=== PATIENT | female | born 1950 | race Caucasian/White ===

== ENCOUNTER 2018-11-28 01:20 | Emergency (ER) | payer MEDICARE, SELFPAY ==
[2018-11-28 01:24] VITALS: BP 159/86; PULSE 96; RESP 18; TEMP 36.2; O2SAT 88; BMI 23.0
--- NOTE | 2018-11-28 03:06 | RAD_ITS ---
STUDY: X-RAY - PELVIS AND RIGHT HIP REASON FOR EXAM: Female, 68 years old. Status post fall. TECHNIQUE: 3 views of the pelvis and hip. COMPARISON: CT scan abdomen and pelvisw 05/28/2015. FINDINGS: There is a non-specific bowel gas pattern. Normal visualized soft tissue structures. Normal bilateral iliac wings, sacroiliac joints and visualized sacrum. Normal bilateral superior and inferior pubic rami. Normal pubic symphysis. Normal bilateral ischial tuberosities. There are osteoarthritic changes of the femoral head with marginal osteophyte formation.p Normal acetabulum. Normal hip joint. RAD/HIP, UNI W/ Pelvis 2-3 Views IMPRESSION: Mild degenerative changes of the hip. No demonstrated fracture, dislocation, or destructive osseous lesion. Electronically Signed: Jeramie Gross MD at 4:19 EDT , Service support ,
--- NOTE | 2018-11-28 03:06 | RAD_ITS ---
STUDY: X-RAY - LEFT ANKLE REASON FOR EXAM: Female, 68 years old. Status post fall. TECHNIQUE: 4 view(s) of the ankle. COMPARISON: None. FINDINGS: There is generalized osteoporosis. Normal visualized talus and calcaneus. The visualized subtalar, talonavicular, calcaneocuboid and tarsal articulations are normal. There is a surgical clip overlying posterior medial soft tissues. There is nonspecific soft tissue swelling. RAD/Ankle min 3 Views IMPRESSION: Osteoporosis. No demonstrated fracture, dislocation, or destructive osseous lesion. Electronically Signed: Jeramie Gross MD at 4:16 EDT , Service support ,
--- NOTE | 2018-11-28 03:06 | RAD_ITS ---
STUDY: X-RAY - PELVIS AND LEFT HIP REASON FOR EXAM: Female, 68 years old. Status post fall. TECHNIQUE: 3 views of the pelvis and hip. COMPARISON: CT scan abdomen and pelvis 05/28/2015. FINDINGS: There is a non-specific bowel gas pattern. Normal visualized soft tissue structures. Normal bilateral iliac wings, sacroiliac joints and visualized sacrum. Normal bilateral superior and inferior pubic rami. Normal pubic symphysis. Normal bilateral ischial tuberosities. There are osteoarthritic changes of the femoral head with marginal osteophyte formation. Normal acetabulum. Normal hip joint. RAD/HIP, UNI W/ Pelvis 2-3 Views IMPRESSION: Mild degenerative changes of the hip. No demonstrated fracture, dislocation, or destructive osseous lesion. Electronically Signed: Jeramie Gross MD at 4:27 EDT , Service support ,
--- NOTE | 2018-11-28 03:06 | RAD_ITS ---
STUDY: X-RAY - LUMBAR SPINE REASON FOR EXAM: Female, 68 years old. Status post fall. TECHNIQUE: 3 view(s) of the lumbar spine were obtained. COMPARISON: X-Ray Lumbar Spine 02/26/2017. CT scan abdomen and pelvis 05/28/2015. FINDINGS: Normal lumbar lordosis. There is mild levoscoliosis of the mid lumbar spine and there is dextroscoliosis at the thoracolumbar junction. There is a normal alignment of the vertebrae. There are compression fractures of the T12,, L2, and L3 vertebral bodies which were also present on the 2017 exam. Additionally, there are mild compression fracture deformities of the L1 and L4 vertebral bodies which were not present in 2017 but still appear to be chronic., With no visible associated cortical discontinuity or fracture line. Overlying few fracture cannot be excluded entirely at the L1 or L4 levels. Normal disc space heights. There is questionable reidentification of an abdominal aortic aneurysm, which was seen on the May 2015 CT scan. RAD/Lumbar Spine 2 or 3 Views IMPRESSION: Multiple old compression fractures, which were also present in 2017. Compression fractures of the L1 and L4 vertebral bodies were not present in 2017 and are probably also old. If clinically warranted, CT scan might be used for confirmation. Electronically Signed: Jeramie Gross MD at 4:26 EDT , Service support ,
[2018-11-28] MEDS: oxyCODONE Soln 5 MG/0.25 ML PO.SYRINGE PO (04:02)
--- NOTE | 2018-11-28 04:37 | ED.DCSUM_ITS ---
- ER Visit Summary Date of Service: 11/28/18 Chief Complaint: Fall History of Present Illness: The patient is a 68 F who presents after a fall. She is normally in a wheelchair. She was trying to open the door when her wheelchair slid out from underneath her and she fell into a seated position. She complains of lower back pain and pain in both feet. She otherwise denies recent illness such as fevers chest pain vomiting. She does not complain of headache or neck pain. She is a hospice patient. Physical Examination: Afebrile pulse ox 88% on 3 L Heart regular rate and rhythm Lungs clear Abdomen soft GCS of 15 with no focal or lateralizing neurological deficits Patient does have some lumbar tenderness as well as tenderness over both hips but she does have active full range of motion x4 extremities she has some mild left ankle tenderness Test Results: X-rays of the lumbar spine show multiple old compression fractures. Bilateral hip x-rays are negative for fracture. Left ankle x-ray is negative for fracture. Emergency Department Course and Treatment: Patient was given oxycodone here for pain. Imaging unremarkable. Patient will be discharged. Treatment Plan: [] Disposition: Discharge Impression: Mechanical fall Multiple contusions This note was generated with Veeker dictation software. It may contain incorrect words, spelling, and punctuation that were not noted in review of the chart prior to signing ED Disposition - Plan for ED Patient: Referrals: Care Physician,No Primary [Primary Care Provider] -
--- NOTE | 2018-11-28 04:37 | ED.DEP ---
ED Disposition - Plan for ED Patient: Instructions: ED Mechanical Fall Referrals: Care Physician,No Primary [Primary Care Provider] -
--- NOTE | 2018-11-28 04:52 | ED.RN ---
SPOKE WITH NURSE HOGSHEAD SALVAGE AT [facility]. SHE VERBALIZED UNDERSTANDING OF CARE GIVEN AT [facility] ED AND STATES THAT A CAREGIVER WILL MEET HER BACK AT HER HOME.
[2018-11-28 05:31] VITALS: BP 150/80; PULSE 113; RESP 18; O2SAT 88
== END 2018-11-28 05:30 | disposition home or self-care (01) ==
PROVIDERS: Emergency Provider Emergency Medicine
DX: T14.8XXA Other injury of unspecified body region, initial encounter (principal); W05.0XXA Fall from non-moving wheelchair, initial encounter; Y93.9 Activity, unspecified; Y92.89 Other specified places as the place of occurrence of the external cause; Y99.9 Unspecified external cause status; M79.671 Pain in right foot; M54.5 Low back pain; J44.9 Chronic obstructive pulmonary disease, unspecified; M81.0 Age-related osteoporosis without current pathological fracture; I10 Essential (primary) hypertension
CPT/HCPCS: 72100; 73502; 73610; 99284; A4216

== ENCOUNTER 2019-01-23 10:48 | Observation (INO) | payer MEDICARE, SELFPAY ==
[2019-01-23 10:49] VITALS: BP 152/94; PULSE 98; RESP 18; TEMP 37.4; O2SAT 78; BMI 18.5
[2019-01-23 10:54] VITALS: BP 152/94; PULSE 98; RESP 20; TEMP 37.4; O2SAT 94
--- NOTE | 2019-01-23 11:04 | RAD_ITS ---
STUDY: X-RAY - LUMBAR SPINE REASON FOR EXAM: Female, 68 years old. Back pain, heard a popping sound TECHNIQUE: 3 view(s) of the lumbar spine were obtained. COMPARISON: 11/28/2018 FINDINGS: Normal lumbar lordosis. There is a dextroscoliosis of the lumbar spine. Grade 1 spondylolisthesis of L5-S1 is stable. There is generalized demineralization of the vertebral bodies. Compression fractures of T12 (severe), L3, L4 stable since prior study. L2 compression fracture with trabecular sclerosis of the superior vertebral body is new since the prior study. The soft tissue structures are unremarkable. RAD/Lumbar Spine 2 or 3 Views IMPRESSION: 1. New L2 compression fracture. 2. Multilevel compression deformities otherwise stable. Electronically Signed: Senthil Kimble MD at 12:08 EDT , Service support ,
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
[2019-01-23] MEDS: HYDROcodone Bitartrate/Apap 5/325 Tablet PO (11:13)
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
--- NOTE | 2019-01-23 13:02 | NURSING ---
MED SURG BACK PAIN KITTOE
[2019-01-23 14:11] VITALS: BMI 19.0
[2019-01-23 14:22] VITALS: BP 140/82; PULSE 80; RESP 16; TEMP 37; O2SAT 94
[2019-01-23 14:30] VITALS: PULSE 76; RESP 19; O2SAT 96
[2019-01-23] MEDS: Acetaminophen 325 MG Tablet 650 MG PO (15:07)
[2019-01-23] MEDS: HYDROmorphone 2 MG TABLET PO ×2 (16:15→23:29)
[2019-01-23] MEDS: Calcium Carb/Vitamin D 1 TABLET Tablet PO (17:53)
[2019-01-23] MEDS: Ipratropium/Albuterol Sulfate 3 ML AMPUL.NEB INHALATION (19:09)
[2019-01-23 19:10] VITALS: PULSE 71; RESP 18
[2019-01-23 20:20] VITALS: BP 158/89; PULSE 97; RESP 18; TEMP 36.9; O2SAT 94
[2019-01-23] MEDS: LORazepam 0.5 MG Tablet PO (21:24)
[2019-01-23] MEDS: Pregabalin 50 MG Capsule PO (21:24)
[2019-01-23] MEDS: Fluticasone 0.05% 1 SPRAY NASAL.SRY NASAL (21:24)
[2019-01-23] MEDS: Methadone 10 MG Tablet PO (21:24)
[2019-01-23] MEDS: MELATONIN 3 MG TABLET PO (21:24)
[2019-01-23] MEDS: levETIRAcetam 500 MG Tablet PO (21:24)
[2019-01-24] VITALS (14 sets, daily range): BP systolic 119–157; BP diastolic 75–106; PULSE 84–102; RESP 18–20; TEMP 36.9–38.1; O2SAT 87–94
[2019-01-24] MEDS: Methadone 10 MG Tablet PO ×3 (05:38→21:41)
[2019-01-24] MEDS: hydrOXYzine PAM 25 MG Capsule PO (05:41)
[2019-01-24 06:12] LABS: Absolute Lymphocyte Count 1.53 X10^3/ul (0.83-4.51); Absolute Neutrophil Count 12.4 X10^3/uL (2.0-7.7); Basophil# 0.02 X10^3/uL; Basophil% 0.1 % (0-1); Eosinophil# 0.34 X10^3/uL; Eosinophils% 2.1 % (0-5); Hematocrit 40.4 % (37-47); Hemoglobin 12.1 g/dl (12.0-15.0); Lymphocyte # 1.53 X10^3/ul (4.0); Lymphocyte % 9.7 % (19-41); Mean Corpuscular Hgb 27.6 pg (27.0-32.0); Mean Corpuscular Volume 92.2 fL (81-99); Mean Platelet Vol. 10.4 fl (6.2-12.0); Monocyte# 1.48 X10^3/uL; Monocyte% 9.3 % (0-10); Neutrophil # 12.41 X10^3/uL (2.7-7.7); Neutrophil % 78.5 % (47-70); Platelet Count 219 K/mm3 (150-450); Red Blood Count 4.38 M/mm3 (4.2-5.4); White Blood Count 15.8 K/mm3 (4.4-11.0)
[2019-01-24 06:32] LABS: Anion Gap 8 (5-15); BUN 15 mg/dL (7-18); BUN/Creat Ratio 17.9 RATIO (10-20); Calcium,Total 10.4 mg/dL (8.5-10.1); Chloride 103 mmol/L (98-107); Creatinine, Serum 0.84 mg/dL (0.55-1.02); EST Glomerular Filtration Rate 71 mL/min (>60); Est Glom Filt Rate - Afr Amer 86 mL/min (>60); Estimated Creatinine Clearance 40.61 ml/min; Glucose 96 mg/dL (74-106); POSITIVE COUNT NO; POSITIVE DIFFERENTIAL NO; POSITIVE MORPHOLOGY NO; Potassium 3.5 mmol/L (3.5-5.1); Sodium Level 144 mmol/L (136-145)
[2019-01-24] MEDS: HYDROmorphone 2 MG TABLET PO ×2 (06:39→19:10)
[2019-01-24] MEDS: Ipratropium/Albuterol Sulfate 3 ML AMPUL.NEB INHALATION ×4 (07:24→19:35)
[2019-01-24] MEDS: Acetaminophen 325 MG Tablet 650 MG PO ×2 (07:32→17:02)
[2019-01-24] MEDS: Calcium Carb/Vitamin D 1 TABLET Tablet PO (08:14)
[2019-01-24] MEDS: amLODIPine 2.5 MG Tablet PO (08:15)
[2019-01-24] MEDS: Polyethylene Glycol 3350 17 GM PACKET PO (08:15)
[2019-01-24] MEDS: Enoxaparin 30 MG/0.3 ML Syringe SC (10:27)
[2019-01-24] MEDS: LORazepam 0.5 MG Tablet PO ×2 (10:27→21:41)
[2019-01-24] MEDS: levETIRAcetam 500 MG Tablet PO ×2 (10:27→21:41)
[2019-01-24] MEDS: Pregabalin 50 MG Capsule PO ×2 (10:27→21:41)
--- NOTE | 2019-01-24 11:24 | CASEMGMT ---
Social Work Note Per Handoff Communication, pt has [facility] services and RN asked to be notified when pt is discharged ([phone]). Molly Wyatt QUALITY SPECIALIST, SALES REPRESENTATIVE MEATS
--- NOTE | 2019-01-24 12:55 | CASEMGMT ---
Addendum entered by Elie Marin 01/24/19 14:52: PCP: Dr. nery Thakur [place], [place] [phone] Original Note: RN CM Assessment Presentation: Lumbar Vertebral fracture, Compression fracture of thoracic vertebra Intro role of CM and purpose of RN CM assessment to patient. Demographics, PCP and Pharmacy verified. Pt with significant memory issues. Could not remember name of PCP, oxygen company or phone number for friend Lester. Attempted to call sister, Barbara Pruitt who is POA and lives in [place] numerous times, however kept getting busy signal. PCP: Nery Thakur, physician Preferred Pharmacy: [facility] [facility] Prescription Benefit: yes LNOK: Barbara Pruitt Living Arrangements: Lives in [facility] with friend Rodney. Uses walker or WC at home. States she was able to get around home, but needed assistance with ADL such as showering, bathing. Asked pt if she has Home Health aides (was listed in PT evaluation). Pt states she does not, however Lester helps her. -Call to [facility]. Pt has [employer] services CM: Jessica Hernandez Services: meals on wheels only Transportation: friend drives DME: walker, shower chair, cane, wheelchair, Oxygen: concentrator, portable tanks, nebulizer- pt does not know which DME company. HHC: none Patient DC goals: Home DC PLAN: undetermined. PT/OT kassandra noted. Recommend evaluating pt's activity tomorrow for dc planning. Ted NUR RN ACM
--- NOTE | 2019-01-24 13:40 | CASEMGMT ---
RN ANAYELI Note: : Intro role of CM to patient and SELBY form explained re: Observation status for treatment of Lumbar fracture. Explained hospitalization will be paid per insurance policy for Outpatient billing and condition will continue to be evaluated for Inpt necessity. Also let pt know that [facility] sends paper in the billing packet with their phone number if questions arise. Discussed Pharmacy section of SELBY form and self administered medication guideline. Pt verbalizes understanding and does not have further questions. Form signed and placed in chart, copy to pt. Ted NUR RN ACM
--- NOTE | 2019-01-24 15:22 | CHAPLAIN ---
Type of Pastoral Visit _x__ Initial Visit ___ Follow-up Visit ___ On-call Visit ___ General Patient Visit ___ Spiritual Assessment ___ Family Conference ___ Bereavement ___ Rapid Response ___ Code Blue ___ Other (describe below) Pastoral Care Referral From _x__ Patient ___ Family ___ Nurse ___ Physician ___ Business Area Manager ___ Newspaper Columnist ___ Other (describe below) Sacrament/Intervention _x__ Active listening ___ Anointing ___ Episcopalian ___ Bereavement ___ Communion ___ Gill exploration ___ ___ Life review _x__ Prayer ___ Reconciliation ___ Sacrament of Sick _x__ Supportive presence ___ Wedding ___ Other (describe below) Pastoral Comments
[2019-01-24] MEDS: guaiFENesin 10 ML UDC (200MG/10ML) 20 ML PO (17:02)
--- NOTE | 2019-01-24 18:48 | PN_ITS ---
Patient Problems: Active and Suspected Problems Lumbar vertebral fracture (Acute) Subjective: Patient was seen and examined today, she is still complaining of low back pain, she is due to be seen by pain management. - Physical Exam General: Alert, Oriented x3, Cooperative, No apparent distress HEENT: Atraumatic, PERRLA, EOMI, Normocephalic Oral: Moist Mucosa Neck: Supple, Trachea Midline, Thyroid Normal Size and Texture Lungs: Clear to auscultation, No wheeze, No rales, Diminished Cardiovascular: Regular rate, Regular Rhythm, Normal S1, Normal S2, No murmurs Abdomen: Bowel Sounds Present, Soft, Non Tender Extremities: No clubbing, No cyanosis, No edema, Capillary Refill Less than 3 Seconds Skin: No rashes, No breakdown Musculoskeletal: Cachexia, Muscle Wasting Neurological: Cranial nerves II-XII grossly intact, Neuro grossly intact, Sensory exam intact to light touch and pain Psych/Mental Status: Normal Affect, Appropriate, Alert and oriented to time, place, person, mood and affect Vital Signs Temp Pulse Resp BP Pulse Ox 99.2 F H 98 18 155/106 H 92 01/24/19 18:22 01/24/19 18:22 01/24/19 18:22 01/24/19 18:22 01/24/19 18:22 Oxygen Flow Rate (L/min) 4 Oxygen Delivery Method Nasal Cannula Weight: 41.277 kg Body Mass Index (BMI) 19.0 Finger Stick Blood Glucose 94 Intake and Output for Last 24 Hours 01/22/19 01/23/19 01/24/19 23:59 23:59 23:59 Intake Total 100 / 350 450 / 450 Output Total 300 / 500 400 / 400 Balance -200 / -150 50 / 50 Laboratory Tests Past 24 Hrs 01/24/19 01/24/19 05:33 05:33 WBC 15.8 H RBC 4.38 Hgb 12.1 Hct 40.4 MCV 92.2 MCH 27.6 MCHC 30.0 L RDW 15.0 H RDW Differential 51.0 H Plt Count 219 MPV 10.4 Immature Gran % (Auto) 0.300 Neut % (Auto) 78.5 H Lymph % (Auto) 9.7 L Lipscomb % (Auto) 9.3 Eos % (Auto) 2.1 Baso % (Auto) 0.1 Absolute Neuts (auto) 12.4 H Absolute Lymphs (auto) 1.53 Total Counted Not Reportable Sodium 144 Potassium 3.5 Chloride 103 Carbon Dioxide 33.0 H Anion Gap 8 BUN 15 Creatinine 0.84 Estim Creat Clear Calc 40.61 Est GFR (MDRD) Af Amer 86 Est GFR (MDRD) Non-Af 71 BUN/Creatinine Ratio 17.9 Glucose 96 Calcium 10.4 H Medical Necessity - Tobacco Use Smoking Status: Former smoker Assessment/Plan All Active Problems Lumbar vertebral fracture (Acute) Acute on chronic respiratory failure with hypoxia and hypercapnia (Acute) Haemophilus influenzae infection (Resolved) Compression fracture of body of thoracic vertebra (Acute) Acute cystitis (Resolved) Alcantar involving 10-19% of body surface with 10-19% third degree alcantar (Resolved) #1 L2 compression fracture-patient will be seen by pain management, continue present pain medications #2 osteoporosis #3 end-stage chronic obstructive pulmonary disease #4 chronic hypoxic respiratory failure #5 generalized debility #6 seizure disorder #7 severe protein caloric malnutrition #8 chronic pain syndrome-patient is being seen by hospice as an outpatient and is on methadone for pain control Code Visit OBSV E&M: 83636 Subsequent observation care L2
[2019-01-24] MEDS: Fluticasone 0.05% 1 SPRAY NASAL.SRY NASAL (21:42)
[2019-01-24] MEDS: Albuterol 2.5 MG/3 ML VIAL.NEB. INHALATION (22:48)
[2019-01-25] VITALS (13 sets, daily range): BP systolic 101–154; BP diastolic 65–82; PULSE 80–106; RESP 14–20; TEMP 36.5–37.5; O2SAT 88–93; BMI 19.0
--- NOTE | 2019-01-25 05:00 | EKG12_ITS ---
Test Reason : AM Blood Pressure : / mmHG Vent. Rate : 104 BPM Atrial Rate : 104 BPM P-R Int : 132 ms QRS Dur : 070 ms QT Int : 346 ms P-R-T Axes : 093 087 085 degrees QTc Int : 454 ms Sinus tachycardia Right atrial enlargement Nonspecific ST abnormality Abnormal ECG When compared with ECG of 29-JUL-2017 15:18, No significant change was found Confirmed by TIFFANY MCCALLUM ([id number]), editorial clerk MEGAN GREENFIELD ([id number]) on 01/27/2019 1:56:30 PM Referred By: Luis Enrique Styles Confirmed By:TIFFANY MCCALLUM
[2019-01-25] MEDS: Methadone 10 MG Tablet PO ×3 (05:20→21:23)
[2019-01-25 06:17] LABS: Absolute Lymphocyte Count 1.46 X10^3/ul (0.83-4.51); Absolute Neutrophil Count 11.8 X10^3/uL (2.0-7.7); Basophil# 0.03 X10^3/uL; Basophil% 0.2 % (0-1); Eosinophil# 0.44 X10^3/uL; Eosinophils% 2.9 % (0-5); Hematocrit 40.3 % (37-47); Hemoglobin 12.1 g/dl (12.0-15.0); Lymphocyte # 1.46 X10^3/ul (4.0); Lymphocyte % 9.6 % (19-41); Mean Corpuscular Hgb 27.5 pg (27.0-32.0); Mean Corpuscular Volume 91.6 fL (81-99); Mean Platelet Vol. 10.1 fl (6.2-12.0); Monocyte# 1.35 X10^3/uL; Monocyte% 8.9 % (0-10); Neutrophil # 11.82 X10^3/uL (2.7-7.7); Neutrophil % 77.9 % (47-70); Platelet Count 213 K/mm3 (150-450); RBC Distribution Width CV 15.1 % (11.6-14.6); RBC Distribution Width SD 49.5 fl (35.1-43.9); White Blood Count 15.2 K/mm3 (4.4-11.0)
[2019-01-25 06:18] LABS: Partial Thromboplast Time 29.6 Seconds (24.1-36.2)
[2019-01-25 06:31] LABS: POSITIVE COUNT NO; POSITIVE DIFFERENTIAL NO; POSITIVE MORPHOLOGY NO
[2019-01-25 06:33] LABS: Anion Gap 8 (5-15); BUN 23 mg/dL (7-18); BUN/Creat Ratio 24.5 RATIO (10-20); Calcium,Total 10.2 mg/dL (8.5-10.1); Chloride 98 mmol/L (98-107); Creatinine, Serum 0.94 mg/dL (0.55-1.02); EST Glomerular Filtration Rate 63 mL/min (>60); Est Glom Filt Rate - Afr Amer 76 mL/min (>60); Estimated Creatinine Clearance 36.29 ml/min; Glucose 98 mg/dL (74-106); Potassium 3.8 mmol/L (3.5-5.1); Sodium Level 137 mmol/L (136-145)
[2019-01-25] MEDS: Ipratropium/Albuterol Sulfate 3 ML AMPUL.NEB INHALATION ×4 (07:11→18:59)
[2019-01-25] MEDS: HYDROmorphone 1 MG/ML Syringe IV (09:42)
--- NOTE | 2019-01-25 09:55 | CASEMGMT ---
Social Work Note FREDDIE received call from pt's CM through [facility]. Jessica states that pt has home delivered meals, [facility], Hospice services and a caregiver that is mostly reliable. Jessica states that APS reports have been made before on pt's caregiver as pt's caregiver is quite younger than pt and doesn't always take good care of pt. Jessica states that she just made an APS report over the weekend. SW informed Jessica that at this time, the plan is for pt to discharge home with resumption of Hospice Services. FREDDIE approached topic of SNF with Jessica and that pt may benefit from SNF. Jessica agrees but states pt will likely not be agreeable to SNF. Jessica states that pt has refused any additional help in the home including refusing aide services. Jessica states pt's caterer helper is Maria Del Carmen. Jessica states she would like discharge summary/instructions faxed to [phone] when pt discharges. Per physician pt is not medically cleared for discharge today. Plan: Home with resumption of Hospice Services Molly Wyatt CONTROL ANALYST, SPORTS MANAGEMENT INTERNSHIP
--- NOTE | 2019-01-25 10:47 | NURSING ---
REPORT CALLED TO MEJIA PAPPAS IN [facility]
[2019-01-25] MEDS: Triamcinolone Acetonide 40 MG/ML Vial (12:58)
--- NOTE | 2019-01-25 13:00 | RAD_ITS ---
STUDY: X-RAY - LUMBAR SPINE REASON FOR EXAM: Female, 68 years old. Intraprocedural imaging. TECHNIQUE: A single intraprocedural digital under penetrated view(s) of the lumbar spine were obtained. COMPARISON: None FINDINGS: A single intraprocedural underpenetrated image shows a needle in place in the region of the upper lumbar spine. RAD/Spine 1 View Any Level IMPRESSION: Documentation image as described. Electronically Signed: Cisco Sung MD at 13:39 EDT , Service support ,
[2019-01-25] MEDS: LORazepam 0.5 MG Tablet PO ×2 (14:03→21:23)
[2019-01-25] MEDS: levETIRAcetam 500 MG Tablet PO ×2 (14:04→21:23)
[2019-01-25] MEDS: Polyethylene Glycol 3350 17 GM PACKET PO (14:04)
[2019-01-25] MEDS: amLODIPine 2.5 MG Tablet PO (14:04)
[2019-01-25] MEDS: Pregabalin 50 MG Capsule PO ×2 (14:06→21:23)
--- NOTE | 2019-01-25 14:06 | NURSING ---
AM MEDS GIVEN LATE DUE TO PT BEING NPO THIS AM FOR PROCEDURE
--- NOTE | 2019-01-25 14:21 | CASEMGMT ---
Social Work: Spoke with Reji Mclaughlin RN ([facility]- Hospital Liaison). Reji states that as long as patient remains in observation status that hospice will not have to have patient sign a revocation from the hospice benefit. Molly Doherty RN CM aware. PLAN: Patient will return home with hospice care at D/C. SHAMIR Garcia
--- NOTE | 2019-01-25 20:06 | PCM.PROGNOTE ---
Patient Problems: Active and Suspected Problems Lumbar vertebral fracture (Acute) Subjective: Patient was seen and examined today, she still has a great deal of lower lumbar pain, I examined her before she underwent an epidural injection this afternoon. Patient has no complaints of any shortness of breath, chest pain, chills, or fever. - Physical Exam General: Alert, Oriented x3, Cooperative, No apparent distress, Well developed, - - Patient appears frail HEENT: Atraumatic, PERRLA, EOMI, Normocephalic Oral: Moist Mucosa Neck: Supple, No JVD, Trachea Midline, Thyroid Normal Size and Texture Lungs: Clear to auscultation, No rhonchi, No wheeze, No rales, Diminished Cardiovascular: Regular rate, Regular Rhythm, Normal S1, Normal S2, No murmurs, No Ectopic Activity, PMI Normal Abdomen: Bowel Sounds Present, Soft, Non Tender, Non-Distended, No hernias noted Extremities: No clubbing, No cyanosis, Capillary Refill Less than 3 Seconds Skin: No rashes, No breakdown Musculoskeletal: No Tenderness to Palpation of Joints or Extremities Neurological: Cranial nerves II-XII grossly intact, Neuro grossly intact, Sensory exam intact to light touch and pain, Coordination normal Psych/Mental Status: Normal Affect, Appropriate, Alert and oriented to time, place, person, mood and affect Vital Signs Temp Pulse Resp BP Pulse Ox 98.9 F 82 18 120/69 89 01/25/19 13:45 01/25/19 15:30 01/25/19 15:30 01/25/19 13:45 01/25/19 13:45 Oxygen Flow Rate (L/min) 2 Oxygen Delivery Method Nasal Cannula Weight: 41.277 kg Body Mass Index (BMI) 19.0 Finger Stick Blood Glucose 94 Intake and Output for Last 24 Hours 01/23/19 01/24/19 01/25/19 23:59 23:59 23:59 Intake Total 100 / 350 610 / 610 800 / 800 Output Total 300 / 500 500 / 500 600 / 600 Balance -200 / -150 110 / 110 200 / 200 Laboratory Tests Past 24 Hrs 01/25/19 01/25/19 01/25/19 06:02 06:02 06:02 WBC 15.2 H RBC 4.40 Hgb 12.1 Hct 40.3 MCV 91.6 MCH 27.5 MCHC 30.0 L RDW 15.1 H RDW Differential 49.5 H Plt Count 213 MPV 10.1 Immature Gran % (Auto) 0.500 Neut % (Auto) 77.9 H Lymph % (Auto) 9.6 L [place] % (Auto) 8.9 Eos % (Auto) 2.9 Baso % (Auto) 0.2 Absolute Neuts (auto) 11.8 H Absolute Lymphs (auto) 1.46 Total Counted Not Reportable APTT 29.6 Sodium 137 Potassium 3.8 Chloride 98 Carbon Dioxide 31.0 Anion Gap 8 BUN 23 H Creatinine 0.94 Estim Creat Clear Calc 36.29 Est GFR (MDRD) Af Amer 76 Est GFR (MDRD) Non-Af 63 BUN/Creatinine Ratio 24.5 H Glucose 98 Calcium 10.2 H Medical Necessity - Tobacco Use Smoking Status: Former smoker Assessment/Plan All Active Problems Lumbar vertebral fracture (Acute) Acute on chronic respiratory failure with hypoxia and hypercapnia (Acute) Haemophilus influenzae infection (Resolved) Compression fracture of body of thoracic vertebra (Acute) Acute cystitis (Resolved) Alcantar involving 10-19% of body surface with 10-19% third degree alcantar (Resolved) #1 L2 compression fracture-patient will undergo an injection per pain management today, the discharge plan is for the patient to return home after her hospitalization #2 osteoporosis #3 end-stage chronic obstructive pulmonary disease #4 chronic hypoxic respiratory failure #5 generalized debility #6 seizure disorder #7 severe protein caloric malnutrition #8 chronic pain syndrome-patient is being seen by hospice as an outpatient and is on methadone for pain control Code Visit Inpatient E&M: 38474 Subs Hosp L2
[2019-01-25] MEDS: HYDROmorphone 2 MG TABLET PO (20:30)
[2019-01-25] MEDS: Fluticasone 0.05% 1 SPRAY NASAL.SRY NASAL (21:23)
[2019-01-26 05:18] VITALS: BP 136/78; PULSE 78; RESP 18; TEMP 36.9; O2SAT 90
[2019-01-26] MEDS: Methadone 10 MG Tablet PO (05:19)
[2019-01-26] MEDS: Ipratropium/Albuterol Sulfate 3 ML AMPUL.NEB INHALATION ×2 (07:06→11:00)
[2019-01-26 07:25] VITALS: PULSE 102; RESP 19
[2019-01-26 08:18] VITALS: BP 125/74; PULSE 94; RESP 16; TEMP 37.2; O2SAT 86
[2019-01-26 08:22] VITALS: O2SAT 90
[2019-01-26] MEDS: Calcium Carb/Vitamin D 1 TABLET Tablet PO (08:26)
[2019-01-26] MEDS: LORazepam 0.5 MG Tablet PO (08:27)
[2019-01-26] MEDS: Enoxaparin 30 MG/0.3 ML Syringe SC (08:28)
[2019-01-26] MEDS: amLODIPine 2.5 MG Tablet PO (08:28)
[2019-01-26] MEDS: levETIRAcetam 500 MG Tablet PO (08:28)
[2019-01-26] MEDS: Polyethylene Glycol 3350 17 GM PACKET PO (08:28)
[2019-01-26] MEDS: Pregabalin 50 MG Capsule PO (08:29)
--- NOTE | 2019-01-26 09:55 | CASEMGMT ---
Social Work Note FREDDIE met with pt to confirm discharge plans. SW introduced self and role at [facility]. Pt is alert and orientated x3. Pt states she hopes to discharge home today. Pt confirms that she lives with a roommate who is able to assist at home. Pt states that she feels safe at home and would like to return to home at discharge. SW approached SNF topic with pt and pt denied SNF placement. Pt again states she would like to discharge home today. SW informed pt that physician will be in to see her and will decide to discharge pt or not. Pt states understanding, denied additional needs or concerns at this time. Pt states that she will have transportation available when she is discharged. Plan: Pt to discharge home with resumption of Hospice Services. Molly Wyatt JIGGER MACHINE OPERATOR, DOOR TO DOOR LEAD GENERATION
--- NOTE | 2019-01-26 11:12 | PCM.DC ---
- Discharge Diagnoses Current Active Problems: Current Active and Chronic Problems Lumbar vertebral fracture (Acute) You will use the following diet at home:: No restrictions Your food should be the consistency of: Regular Your liquids should be the consistency of: Regular/Thin Discharge Activity: Return to Normal Activity Weight Bearing Status: Full weight bearing Allergies/Adverse Reactions: Allergies codeine Allergy (Verified 01/23/19 10:55) Itching ketorolac tromethamine [From Toradol] Allergy (Verified 01/23/19 10:55) Rash morphine Allergy (Verified 01/23/19 10:55) Itching propoxyphene HCl [From Darvon] Allergy (Verified 01/23/19 10:55) Hives Medications to take at Discharge Albuterol Inhaler [Ventolin Hfa] 1 puff INHALATION Q2H PRN PRN 02/26/17 Amlodipine [Norvasc] 2.5 mg PO DAILY 02/26/17 Albuterol Aerosols [Ventolin Aerosols] 2.5 mg INHALATION Q2H PRN PRN #120 vial.neb. 04/07/17 Ipratropium/Albuterol Sulfate [Duoneb] 3 ml INHALATION 4X/DAY #120 ampul.neb 04/07/17 HYDROmorphone tablet [Dilaudid] 2 mg PO Q6H PRN PRN 01/23/19 Hydroxyzine HCl 25 mg PO Q6H PRN PRN 01/23/19 Lorazepam [Ativan] 0.5 mg PO BID 01/23/19 Methadone HCl 10 mg PO TID 01/23/19 Polyethylene Glycol 3350 [Miralax] 17 gm PO DAILY 01/23/19 Pregabalin [Lyrica] 50 mg PO BID 01/23/19 levETIRAcetam tablet [Keppra tablet] 500 mg PO BID 01/23/19 Calcium Carb/Vitamin D [Os-Derrick 500MG + D] 1 tab PO BIDCM #28 tab 01/26/19 Risedronate [Actonel] 35 mg PO QWEEK #2 tab 01/26/19 Senna/Docusate Sodium [Senokot-S] 2 tab PO BID PRN PRN tab 01/26/19 The following prescriptions were given: Risedronate [Actonel] 35 mg PO QWEEK #2 tab Transmission Status: Pending to [facility] [place] - [id number] Calcium Carb/Vitamin D [Os-Derrick 500MG + D] 1 tab PO BIDCM #28 tab Transmission Status: Pending to [facility] Primary Care Physician: Care Physician,No Primary [NON-STAFF] - Test Results: Test results from this visit will be discussed in further detail at your follow-up appointment, if applicable. Please Follow Up With: Hospice When: as directed Please Follow Up With: Lor Solano MD When: as directed
--- NOTE | 2019-01-26 12:59 | CASEMGMT ---
Social Work Note FREDDIE received message from FREDDIE Delvalle, at [place] requesting a call back. [phone]. Pt is being discharged from [facility] today. FREDDIE placed a call to FREDDIE Delvalle, at [facility] and informed her that pt is being discharged home today. FREDDIE faxed discharge paperwork to Jessica pt's CM at [facility]. FREDDIE placed a call to Lydia Ramirez with APS as per previous conversations with pt's CM Jessica through [facility] an APS report was made on pt over the weekend. FREDDIE left message for Lydia updating her that pt discharged home today with resumption of Hospice Services. Molly Wyatt RADIOGRAPHER MAMMOGRAPHER, PROSTHETIC AIDES TEACHER
--- NOTE | 2019-01-27 09:57 | PCM.DC.SUM ---
Discharge Date and Diagnosis Date of Admission: 01/23/19 Date of Discharge: 01/26/19 - Primary Discharge Diagnosis 1 L2 compression fracture secondary to osteoporosis #2 osteoporosis #3 end-stage chronic obstructive pulmonary disease #4 chronic hypoxic respiratory failure #5 generalized debility #6 seizure disorder #7 severe protein caloric malnutrition #8 chronic pain syndrome - Secondary Discharge Diagnosis Chronic Problems COPD, severe (Chronic) smoker Hypertension (Chronic) Chronic pain (Chronic) Anxiety (Chronic) Seizure (Chronic) Abscess of lung with pneumonia (Chronic) Cachexia (Chronic) Benzodiazepine dependence, continuous (Chronic) Nicotine dependence (Chronic) Chronic back pain (Chronic) Anxiety disorder (Chronic) Depression (Chronic) COPD (chronic obstructive pulmonary disease) (Chronic) Ribs, multiple fractures (Chronic) left posterior 11th, left anterior 5th rib Abdominal aortic aneurysm (Chronic) 5 cm Compression fracture (Chronic) L4-old Hospital Course and Treatment Operations: None Procedures: - - Lumbar epidural steroid injection Summary of Care Provided: The patient is a 68 year old F seen in the emergency room at [facility] with a chief complaint of severe lower back pain, she had leaned over to fruit or nut picker a dog from her chair and had an episode of severe lower back pain. Work-up in the emergency room included x-rays of the lumbar spine which showed old compression fractures but also showed a new compression fracture at L2. Patient was placed in observation status on MedSurg 3, given IV pain medications, she was also seen in consultation by pain management who performed an epidural injection in the lumbar region on 01/25/19. On 01/26/2019, patient was seen and examined: On examination she appeared in good health and spirits, she appeared cachectic. Vital signs as documented. Skin warm and dry and without overt rashes. Neck without JVD. Lungs clear. Heart exam notable for regular rhythm, normal sounds and absence of murmurs, rubs or gallops. Abdomen unremarkable and without evidence of organomegaly, masses, or abdominal aortic enlargement. Extremities nonedematous. Neuro: Cranial nerves II through XII are grossly intact, no focal motor deficits were noted, sensation to light touch and pinprick is intact. Psych: Patient is alert and oriented x3, she does not appear anxious or depressed 01/26/2019, patient was seen and examined in follow-up in stable condition for discharge home - Physical Exam Vital Signs Temp Pulse Resp BP Pulse Ox 98.9 F 94 16 125/74 H 90 01/26/19 08:18 01/26/19 08:18 01/26/19 08:18 01/26/19 08:18 01/26/19 08:22 Oxygen Flow Rate (L/min) 2.5 Oxygen Delivery Method Nasal Cannula Weight: 41.277 kg Body Mass Index (BMI) 19.0 Finger Stick Blood Glucose 94 Intake and Output for Last 24 Hours 01/25/19 01/26/19 01/27/19 23:59 23:59 23:59 Intake Total 1040 / 1040 320 / 320 Output Total 600 / 600 300 / 300 Balance 440 / 440 Discharge Activity: Return to Normal Activity Weight Bearing Status: Full weight bearing Home Medications: Medications to take at Discharge Albuterol Inhaler [Ventolin Hfa] 1 puff INHALATION Q2H PRN PRN 02/26/17 Amlodipine [Norvasc] 2.5 mg PO DAILY 02/26/17 Albuterol Aerosols [Ventolin Aerosols] 2.5 mg INHALATION Q2H PRN PRN #120 vial.neb. 04/07/17 Ipratropium/Albuterol Sulfate [Duoneb] 3 ml INHALATION 4X/DAY #120 ampul.neb 04/07/17 HYDROmorphone tablet [Dilaudid] 2 mg PO Q6H PRN PRN 01/23/19 Hydroxyzine HCl 25 mg PO Q6H PRN PRN 01/23/19 Lorazepam [Ativan] 0.5 mg PO BID 01/23/19 Methadone HCl 10 mg PO TID 01/23/19 Polyethylene Glycol 3350 [Miralax] 17 gm PO DAILY 01/23/19 Pregabalin [Lyrica] 50 mg PO BID 01/23/19 levETIRAcetam tablet [Keppra tablet] 500 mg PO BID 01/23/19 Calcium Carb/Vitamin D [Os-Derrick 500MG + D] 1 tab PO BIDCM #28 tab 01/26/19 Risedronate [Actonel] 35 mg PO QWEEK #2 tab 01/26/19 Senna/Docusate Sodium [Senokot-S] 2 tab PO BID PRN PRN tab 01/26/19 Following Prescrptions Were Given to Patient: Risedronate [Actonel] 35 mg PO QWEEK #2 tab Transmission Status: Received by [facility] - [place] - [id number] Calcium Carb/Vitamin D [Os-Derrick 500MG + D] 1 tab PO BIDCM #28 tab Transmission Status: Received by [facility] Primary Care Physician: Care Physician,No Primary [NON-STAFF] - Please Follow Up With: Hospice When: as directed Please Follow Up With: Lor Solano MD When: as directed Disposition: Home Minutes spent on discharge:: 32 Patient Condition:: Stable Medical Necessity - Tobacco Use Smoking Status: Former smoker Meaningful Use Info Meaningful Use Diagnoses (Choose all that apply): None applicable Code Visit OBSV E&M: 19085 Observation care discharge
== END 2019-01-26 12:45 | disposition hospice, home (50) ==
LOC: ED 12:38 → MS3 13:26
PROVIDERS: Anesthesiology; Anesthesiology Pain Medicine; Admitting Provider Internal Medicine; Emergency Provider Emergency Medicine; Referring Provider Internal Medicine; Visit Provider Internal Medicine
PROC: 3E0S3BZ Introduction of Anesthetic Agent into Epidural Space, Percutaneous Approach (ICD-10-PCS; CPT 62322; principal; 2019-01-25 11:10)
DX: M48.56XA Collapsed vertebra, not elsewhere classified, lumbar region, initial encounter for fracture (principal); M48.54XA Collapsed vertebra, not elsewhere classified, thoracic region, initial encounter for fracture; J44.9 Chronic obstructive pulmonary disease, unspecified; E43 Unspecified severe protein-calorie malnutrition; Z68.1 Body mass index [BMI] 19.9 or less, adult; J96.22 Acute and chronic respiratory failure with hypercapnia; J96.21 Acute and chronic respiratory failure with hypoxia; F41.9 Anxiety disorder, unspecified; F32.9 Major depressive disorder, single episode, unspecified; I10 Essential (primary) hypertension; G40.909 Epilepsy, unspecified, not intractable, without status epilepticus; G89.4 Chronic pain syndrome; Z79.899 Other long term (current) drug therapy; Z99.81 Dependence on supplemental oxygen; Z87.891 Personal history of nicotine dependence; Z79.891 Long term (current) use of opiate analgesic
CPT/HCPCS: 62323; 36415; 64483; 72020; 72100; 80048; 85025; 85730; 93005; 94640; 96372; 96374; 97162; 97166; 99218; 99283; J7030; G0378; J3490